=== PATIENT | male | born 1950 | race Caucasian/White ===

== ENCOUNTER 2016-12-01 08:55 | Day surgery (SDC) | payer OTHER ==
[2016-11-30 11:52] VITALS: BMI 22.8
[~2016-12-01] VITALS: Ht 167.6 cm; Wt 62.0 kg
[2016-12-01] VITALS (10 sets, daily range): BP systolic 119–165; BP diastolic 45–80; PULSE 60–81; RESP 14–22; Ht 167.6 cm; Wt 62.0 kg
[~2016-12-01 08:55] MED LIST: ALLO100T PO; AMLO-147 PO; ASPI-664 PO; CALC0.2511 PO; CHOL20003 PO; FURO20TA3 PO; GLIM1TAB2 PO; LISI10TA2 PO; MAGN400T27 PO; METO50TA16 PO; SIMV10TA6 PO
[2016-12-01] MEDS ORDERED: METO25TA4 PO (09:28)
[2016-12-01] MEDS ORDERED: METO25TA7 PO (09:29)
[2016-12-01 09:53] LABS: HEMATOCRIT 27.9 % (42.0-52.0); HEMOGLOBIN 9.2 g/dl (14.0-18.0); MEAN CORPUSCULAR HEMOGLOBIN 27.7 pg (29.0-33.0); MEAN CORPUSCULAR HGB CONC 33.1 g/dl (32.0-37.0); MEAN CORPUSCULAR VOLUME 83.7 fl (82.0-101.0); MEAN PLATELET VOLUME 8.9 fl (7.4-10.4); PLATELET COUNT 123 10^3/UL (140-440); RED BLOOD COUNT 3.33 10^6/ul (4.70-6.10); RED CELL DISTRIBUTION WIDTH 18.7 % (11.5-14.5); UNCORRECTED WBC 7.3 10^3/ul (4.8-10.8); WHITE BLOOD COUNT 7.3 10^3/ul (4.8-10.8)
[2016-12-01] MEDS ORDERED: SOD CHLORIDE 0.9% 1,000 ML IV SCH (10:00)
[2016-12-01 10:05] LABS: CONDITION 1; LH ANALYZER COMMENTS 1; SUSPECT 1
[2016-12-01 10:06] LABS: CREATININE 2.21 mg/dl (0.61-1.24); POTASSIUM 4.9 mmol/L (3.5-5.1)
[2016-12-01 10:07] LABS: INR 1.04; PROTIME 13.6 Sec (12.2-14.2); PT RATIO 1.1
[2016-12-01 10:08] LABS: CALCIUM 8.9 mg/dl (8.4-10.2)
[2016-12-01] MEDS ORDERED: MIDAZOLAM 1 MG/ML 2 ML INJ ONE (10:28)
[2016-12-01] MEDS ORDERED: HEPARIN 1000 UNITS/NS (A-LINE) 1,000 ML ONE (10:28)
[2016-12-01] MEDS ORDERED: LIDOCAINE 1% (MDV) 20 ML INJ ONE (10:28)
[2016-12-01] MEDS ORDERED: IODIXANOL LOCM 50 ML BTL ONE ×2 (10:28→11:19)
[2016-12-01] MEDS ORDERED: FENTAnyl 50 MCG/ML VIAL ONE (10:29)
[2016-12-01] MEDS ORDERED: HEPARIN 1000 UNITS/ML 10 ML INJ ONE (11:08)
[2016-12-01 11:50] LABS: PARTIAL THROMBOPLASTIN TIME 45.5 Sec (25.0-35.0)
[2016-12-01] MEDS ORDERED: hydrALAzine 20 MG INJ ONE ×2 (11:57→12:09)
[2016-12-01] MEDS ORDERED: SOD CHLORIDE 0.45% 1,000 ML IV SCH (12:29)
[2016-12-01] MEDS ORDERED: ONDANSETRON 4 MG INJ IV PRN (12:30)
--- NOTE | 2016-12-01 12:32 | PDOCDIS ---
Discharge Instructions DIAGNOSIS Discharge Diagnosis: LUE SEVERE CLAUDICATION CONDITION Patient Condition: Good HOME CARE INSTRUCTIONS: Special Diet: RENAL ACTIVITY: Activity Restrictions: Slowly Increase Activity Rest between Activity Avoid heavy lifting Do not Drive Do not operate Machinery Do not operate Power Tool Avoid Heavy Housework Keep Limb Elevated Bathing Restrictions: Shower FOLLOW UP/APPOINTMENTS Appointments followup with reji at [facility] IN 2 WEEKS MAY REMOVED DRESSING TOMORROW IF THERE IS SWELLING OR BLEEDING FROM THE LEFT ANTECUBUTAL REGION INFORM MF IMMEDIATELY LEXUS ESPARZA MD Dec 01, 2016 12:31
[2016-12-01 12:42] LABS: BASOPHIL # 0.1 10^3/ul (0.0-0.1); EOSINOPHILS # 0.2 10^3/ul (0.0-0.5); LYMPHOCYTES # 1.2 10^3/ul (0.8-2.9); MONOCYTE # 1.3 10^3/ul (0.3-0.9); MYELOCYTES # 0.1; NEUTROPHIL # 3.9 10^3/ul (1.6-7.5)
--- NOTE | 2016-12-01 14:12 | OPR ---
DATE OF OPERATION: 12/01/2016 SURGEON: Iam Estrada MD. FLUOROSCOPY [place]: Kolton Barros MD. 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 POSTOPERATIVE DIAGNOSIS: Left subclavian severe stenosis with left upper extremity disabling belen ication. PROCEDURES: 1. Thoracic arch angiogram. 2. Left subclavian artery balloon mounted stent measuring 8 mm x 37 mm. 3. Heparin 2500 units intravenously. ANESTHESIA: Local with monitored sedation. COMPLICATIONS: None. ACCESS: Left brachial artery with 5/6 Slender sheath. CLOSURE: Manual compression. FINDINGS: Severe to near occlusion (99%) of the left subclavian artery. Post-stenting and angioplas ty, patent subclavian artery from the arch to the axillary artery. DESCRIPTION OF PROCEDURE: The patient was brought into the angio suite and placed in supine positio n. Bony prominences were padded appropriately. The left arm was prepped and draped in the usual st andard sterile fashion. Time-out was taken, and the correct site was marked and the patient identif ication was correct. Local anesthesia was then infiltrated in the region of the right brachial artery and the antecubital fossa. The artery was then cannulated with the micro access needle under ultrasound guidance, and the guidewire was advanced into the proximal brachial artery under fluoroscopic guidance. The needl e was then removed, and a micro catheter was placed. A Bentson wire was then passed into the subcla vian artery under fluoroscopic guidance followed by a Slender 5/6 [place] sheath over the wire. The sheath was then appropriately flushed with heparinized saline solution. Using a guiding Sd granados atheter and a Glidewire, with much difficulty, we were able to cross the severe stenosis near 99% in mid subclavian artery and get the wire into the descending thoracic arch. At this point, we perfor med a thoracic arch angiogram, and we identified the area of severe stenosis/near occlusion. At thi s point, we used a 4 x 40 balloon to predilate in the region of the proximal subclavian/mid subclavi an artery to near the into the JENSEN. Once this was performed, we then went ahead and passed a balloon mounted stent measuring 8 mm x 37 mm to the area of severe stenosis, and we went ahead and deployed. At this point, angioplasty was also performed as well as the deployment of the stent. Po st stent deployment, angiogram was performed demonstrating a patent subclavian artery. All the sotomayor ths and wires and catheters were removed, and manual compression was placed with a short time period of a TR band. The patient tolerated the procedure well and was taken to the postanesthesia care un it in stable condition. The patient's neurovascular checks were normal. Cranial nerves II-XII were normal, and no motor deficits were identified. PLAN: At this point, the patient's severe stenosis has been managed with appropriately stenting and performing balloon angioplasty of the subclavian artery. The patient has a postoperative palpable b rachial and radial pulse now. We will have the patient follow up in 2 weeks, and we encouraged him to continue with his antiplatelet therapy. Dictated By: IAM CABELLO/ESTER Conf#: [id number] DID#: [id number]
--- NOTE | 2016-12-02 22:54 | RADRPT ---
Vent Rate: 63 bpm RR Interval: 0 msec [place] Interval: 182 msec QRS Duration: 82 msec QT Interval: 456 msec QTC Interval: 466 msec P-R-T [place]: 53 - 46 - 77 degrees Normal sinus rhythm Normal ECG Electronically Signed By: Serafin [place] [id number]
== END 2016-12-01 17:00 | disposition home or self-care (01) ==
LOC: SDS 08:55
PROVIDERS: ATTEND Thoracic Surgery (Cardiothoracic Vascular Surgery)
DX: I73.9 Peripheral vascular disease, unspecified (principal); I70.8 Atherosclerosis of other arteries
CPT/HCPCS: 37246; 75710; 80048; 82962; 85025; 85610; 85730; 93005; C1769; C1875; C1887; C1894; J0360; J1644; J2250; J3010; Q9967; Z7610

== ENCOUNTER → 2017-03-16 | Day surgery (SDC) | payer OTHER ==
[~2017-03-16] VITALS: Ht 170.2 cm; Wt 62.5 kg
[~2017-03-16] MED LIST changes: -CHOL20003 PO; +CHOL200073 PO; +FENTAnyl 50 MCG/ML VIAL ONE; +FER325 PO; +METO25TA4 PO; +METO25TA7 PO; +MIDAZOLAM 1 MG/ML 2 ML INJ ONE
[2017-03-16 16:44] VITALS: Ht 170.2 cm; Wt 62.5 kg
[2017-03-16 16:54] VITALS: BP 203/89; PULSE 58; RESP 24
[2017-03-16 17:22] VITALS: BP 160/71; PULSE 51; RESP 19
[2017-03-16 17:30] VITALS: BP 166/73; RESP 20
--- NOTE | 2017-03-17 05:05 | GILP ---
DATE OF PROCEDURE: 03/16/2017 NAME OF PROCEDURES: Colonoscopy and polypectomy. SURGEON: Alejandra Rod MD PREOPERATIVE DIAGNOSIS: Positive occult blood in stool. POSTOPERATIVE DIAGNOSES: 1. Colonoscopy all the way to the cecum. 2. Transverse colon polyp was removed using the snare and electrocautery. 3. Internal hemorrhoids. INDICATION FOR THE PROCEDURE: Mr. Last Cruz is a 66-year-old male patient who was noted to have pos itive occult blood in stool. The patient was scheduled for colonoscopy for further evaluation. The procedure and possible complications are well explained to the patient and the family, and conse nt was obtained. DESCRIPTION OF PROCEDURE: Under the influence of fentanyl and Versed, the colonoscope was carefully introduced in the rectum, and under direct vision, it was advanced all the way to the cecum. FINDINGS: The patient had a transverse colon polyp, and it was removed using the snare and electroc autery. He was noted to have internal hemorrhoids. He tolerated the procedure very well, and there was no complication from the procedure. At the end of the procedure, he was awake with stable vital signs, and he was discharged home to the care of hi s family. IMPRESSION: 1. Colonoscopy all the way to the cecum. 2. Transverse colon polyp was removed using the snare and electrocautery. 3. Internal hemorrhoids. PLAN: 1. Await histopathology report. 2. The timing for the next colonoscopy will be decided after reviewing the histopathology. Dictated By: ALEJANDRA TAVAREZ/ESTER Conf#: [id number] DID#: [id number]
== END | disposition home or self-care (01) ==
LOC: GIL 14:18
PROVIDERS: ATTEND Internal Medicine Gastroenterology
DX: D12.3 Benign neoplasm of transverse colon (principal); K64.8 Other hemorrhoids; I12.9 Hypertensive chronic kidney disease with stage 1 through stage 4 chronic kidney disease, or unspecified chronic kidney disease; N18.9 Chronic kidney disease, unspecified
CPT/HCPCS: 45380; 82962; 88305; J2250; J3010; Z7610